=== PATIENT | female | born 1980 | race Caucasian/White ===

== ENCOUNTER 2016-11-12 10:52 | Emergency (ER) | payer OTHER ==
--- NOTE | ~2016-11-12 | CR63 ---
[facility] A Service of [facility] RADIOLOGY TEXT RESULTS PATIENT: DONELL MORGAN LOCATION: [facility] : [birth year] UNIT #: [id number] AGE: [address]: Connor Montes De Oca MD SEX: F ORDER DR: [id number] [facility] [address] [place], [place] [address] [id number] MR#: [id number] Acc #: [id number] NAME: DONELL MORGAN : 1980 SEX: F STUDY DATE/TIME: 11/12/2016 11:36 UNIT: [facility] ROOM: STUDY DESCRIPTION: CR Chest 2 View Attending Physician: Connor Montes De Oca M.D. Ordering Physician: Connor Montes De Oca M.D. Primary Care Physician: Elly Webb M.D. MEDICAL IMAGING REPORT This report is preliminary unless electronic signature is present EXAM 2-view chest, 11/12/2016. HISTORY 36-year-old female with shortness of air and cough for 2 days. COMPARISON None. FINDINGS 2 views of the chest are slightly limited secondary to motion on the lateral projection. Allowing for this, there is some questionable opacity in the right lung base. Early pneumonia not excluded in the appropriate clinical setting. Left lung appears clear. No pleural effusion or pneumothorax. Heart size and mediastinum within normal limits. Pulmonary vasculature is unremarkable. IMPRESSION Slight motion limitation on the lateral projection. There is some questionable infiltrate in the right lung base. Early pneumonia not excluded in the appropriate clinical setting. No other acute chest findings. Dictated by... Dawit Sylvester M.D. THIS IS AN ELECTRONICALLY VERIFIED REPORT Dawit Sylvester M.D. at 11/12/2016 5:02 PM MAITE/lloyd TD: 11/12/2016 14:02 JOB #: [id number] [facility] A Service of [facility] RADIOLOGY TEXT RESULTS PATIENT: DONELL MORGAN LOCATION: [facility] : 80 UNIT #: [id number] AGE: [address]: Connor Montes De Oca MD SEX: F ORDER DR: MEDICAL IMAGING REPORT Page 1 of 1 COPY
--- NOTE | ~2016-11-12 | EKG ---
PATIENT: DONELL MORGAN UNIT #: [id number] Ventricular Rate: 84 BPM Atrial Rate: 84 BPM P-R Interval: 160 ms QRS Duration: 78 ms Q-T Interval: 380 ms QTC Calculation(Bezet): 449 ms P [place]: 69 degrees Calculated R [place]: 43 degrees Calculated T [place]: 39 degrees Diagnosis Line: Normal sinus rhythm Diagnosis Line: Normal ECG Diagnosis Line: No previous ECGs available Diagnosis Line: Confirmed by LULY ADAMS MD ([id number]) on 11/13/2016 Diagnosis Line: 9:14:49 PM INTERPRETING MD: ANGIE WOO
[2016-11-12 10:44] LABS: BASOPHIL# 0.1 X10e3 (0-0.3); BASOPHIL% 1.4 % (0-2.5); EOSINOPHIL# 0.2 X10e3 (0-0.7); EOSINOPHIL% 3.4 % (0.0-7.0); HEMATOCRIT 43.8 % (35.0-45.0); HEMOGLOBIN 14.2 gm/dL (12.0-16.0); LYMPHOCYTE# 1.7 X10e3 (1.0-3.5); LYMPHOCYTE% 30.5 % (17.0-45.0); MEAN CORPUSCULAR HGB CONC 32.5 g/dL (30-36); MEAN PLATELET VOLUME 8.4 FL (6.5-11.5); MONOCYTE# 0.3 X10e3 (0-1.0); MONOCYTE% 5.6 % (3.0-12.0); NEUTROPHIL# 3.4 X10e3 (1.5-7.1); NEUTROPHIL% 59.1 % (40-75); PLATELET COUNT 190 X10e3 (140-420); RED BLOOD COUNT 5.27 X10e (3.90-5.30); RED CELL DISTRIBUTION WIDTH 15.4 % (11.0-15.5); WHITE BLOOD COUNT 5.7 X10e3 (4.0-10.5)
[2016-11-12 10:48] LABS: POC - CKMB <1.0 ng/mL (0.0-7.9); POC - TROPONIN <0.05 ng/mL (<=0.05)
[2016-11-12 10:50] LABS: DIFF IND NO
[~2016-11-12 10:52] MED LIST: CLEOCIN PO; DAKIN'S3840 ML TOP; HYDROCODONE-APA1 T33 PO; PERCOCET5/325 PO; TEGRETOL PO; TEGRETOL XR PO
[2016-11-12 11:12] LABS: ALBUMIN SERUM 3.7 g/dL (3.5-5.0); BILIRUBIN, DIRECT 0.1 mg/dL (0.0-0.2); BILIRUBIN,INDIRECT 0.6 mg/dL (0.0-0.9); BILIRUBIN,TOTAL 0.7 mg/dL (0.2-2.0); BUN/CREATININE RATIO 11.42; CALCIUM SERUM 8.6 mg/dL (8.4-10.2); CREATININE SERUM 0.7 mg/dL (0.6-1.4); GLOM FILT RATE Estimated 111.5 mL/min (>60); PROTEIN TOTAL SERUM 7.2 g/dL (6.0-8.3)
== END 2016-11-12 12:10 | disposition home or self-care (01) ==
LOC: CED 10:52
PROVIDERS: Emergency Medicine
DX: J18.9 Pneumonia, unspecified organism (principal); J98.01 Acute bronchospasm; E11.9 Type 2 diabetes mellitus without complications; I10 Essential (primary) hypertension; F17.210 Nicotine dependence, cigarettes, uncomplicated; Z79.899 Other long term (current) drug therapy
CPT/HCPCS: 36415; 71020; 80048; 80076; 82553; 82947; 83880; 84484; 85025; 85379; 93005; 94640; 99284